=== PATIENT | male | born 1960 | race Caucasian/White ===

== ENCOUNTER 2018-10-03 11:52 | Emergency (ER) | payer MEDICARE ==
[~2018-10-03] VITALS: Ht 188 cm; Wt 113.4 kg
== END 2018-10-03 12:42 | disposition home or self-care (01) ==
LOC: FSED 11:52
DX: R05 Cough (principal); J20.9 Acute bronchitis, unspecified; I10 Essential (primary) hypertension; E78.00 Pure hypercholesterolemia, unspecified; Z86.73 Personal history of transient ischemic attack (TIA), and cerebral infarction without residual deficits
CPT/HCPCS: 99282